=== PATIENT | female | born 2005 | race Caucasian/White ===

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

== ENCOUNTER 2025-03-31 18:12 | Day surgery (SDC) | payer MEDICAID ==
[2025-03-31 18:27] VITALS: BMI 36.3
[2025-03-31] MEDS ORDERED: hydrALAZINE 20 MG/ML VIAL SLOW IVP PRN (18:27)
== END 2025-03-31 19:40 | disposition home or self-care (01) ==
LOC: CSHLD/OP 18:12
PROVIDERS: ATTEND Obstetrics & Gynecology
DX: O36.8120 Decreased fetal movements, second trimester, not applicable or unspecified (principal); O23.592 Infection of other part of genital tract in pregnancy, second trimester; N89.8 Other specified noninflammatory disorders of vagina; B96.89 Other specified bacterial agents as the cause of diseases classified elsewhere; Z3A.27 27 weeks gestation of pregnancy; Z90.89 Acquired absence of other organs; Z79.899 Other long term (current) drug therapy
CPT/HCPCS: 76819; 87480; 87510; 87660; 99283

== ENCOUNTER 2025-04-16 21:37 | Emergency (ER) | payer MEDICAID | END 2025-04-16 22:32 | disposition home or self-care (01) | LOC: CSHERS 21:37 | DX: O99.613 Diseases of the digestive system complicating pregnancy, third trimester (principal); K08.89 Other specified disorders of teeth and supporting structures; Z3A.30 30 weeks gestation of pregnancy | CPT/HCPCS: 99282 ==

== ENCOUNTER 2025-06-04 07:27 | Day surgery (SDC) | payer MEDICAID, OTHER ==
[2025-06-04] MEDS ORDERED: hydrALAZINE 20 MG/ML VIAL SLOW IVP PRN (08:42)
[2025-06-04 09:22] VITALS: BMI 39.2
[2025-06-04 09:31] LABS: Glucose, Urine (Dipstick) Normal (Negative); Leukocyte 25 (Negative); Protein, Urine (Dipstick) 30 mg/dl (Neg-Trace); Specific Gravity, Urine 1.020 (1.005-1.030)
[2025-06-04 09:43] LABS: Bacteria/HPF 2+ HPF (None Seen); CAUTI Indications for Culture Pelvic or flank pain; RBC/HPF None Seen HPF (0-3)
[2025-06-04 09:44] LABS: Urine Culture Reflex No No
== END 2025-06-04 09:55 | disposition home health service (06) ==
LOC: CSHLD/OP 07:27
PROVIDERS: ATTEND Obstetrics & Gynecology
DX: O99.891 Other specified diseases and conditions complicating pregnancy (principal); M54.50 Low back pain, unspecified; O47.03 False labor before 37 completed weeks of gestation, third trimester; E86.0 Dehydration; Z3A.36 36 weeks gestation of pregnancy
CPT/HCPCS: 81001; 99283

== ENCOUNTER 2025-07-05 18:00 | Inpatient (IN) | payer OTHER ==
[2025-07-05] MEDS ORDERED: Ondansetron PF 4 MG/2 ML Vial IVP PRN (18:20)
[2025-07-05] MEDS ORDERED: Lidocaine 1% (PF) 30 ML VIAL SC PRN (18:20)
[2025-07-05] MEDS ORDERED: hydrALAZINE 20 MG/ML VIAL SLOW IVP PRN (18:20)
[2025-07-05] MEDS ORDERED: Acetaminophen 500 MG TAB PO PRN (18:21)
[2025-07-05] MEDS ORDERED: Tranexamic Acid 1,000 MG/10 ML VIAL IVP PRN (18:21)
[2025-07-05] MEDS ORDERED: Methylergonovine 0.2 MG/ML VIAL IM PRN (18:21)
[2025-07-05] MEDS ORDERED: Carboprost 250 MCG/ML AMP IM PRN (18:21)
[2025-07-05] MEDS ORDERED: Diphenoxylate HCl/Atropine Tablet PO PRN ×2 (18:21)
[2025-07-05] MEDS ORDERED: Ibuprofen 800 MG TAB PO PRN (18:21)
[2025-07-05] MEDS ORDERED: Oxytocin 30 units/NS 500 ML 500 ML IV SCH (18:30)
[2025-07-05 19:32] VITALS: BMI 40.3
[2025-07-05 19:43] LABS: Hematocrit 32.9 % (34.9-44.5); Hemoglobin 10.8 g/dL (12.0-15.5); Mean Corpuscular Hemoglobin 26.0 pg (27.0-33.0); Mean Corpuscular Volume 79.3 fL (81.6-98.3); Platelet Count 336 10x3/uL (150-450); Red Blood Cell (RBC) Count 4.15 10x6/uL (3.90-5.03); White Blood Cell (WBC) Count 12.66 10x3/uL (3.5-10.5)
[2025-07-05 21:37] LABS: HIV (1/2) Antibody/Antigen Non-Reactive (NonReactive); HIV 1/2 INDEX 0.11 S/CO (<1.00); Hep B Surf Ag - L&D Non-Reactive S/CO (NonReactive)
[2025-07-05 21:38] LABS: Syphilis Antibody Index 0.03 S/CO (<1.00 Non-Reactive)
[2025-07-05] MEDS: Oxytocin 30 units/NS 500 ML 500 ML IV SCH (21:41)
[2025-07-05] MEDS ORDERED: diphenhydrAMINE 50 MG/ML VIAL IVP PRN (23:16)
[2025-07-05] MEDS ORDERED: Communication Order-Pharmacy FS SCH (23:30)
[2025-07-05] MEDS: fentaNYL/Ropivacaine Epidural 100 ML ONE (23:35)
[2025-07-06] MEDS ORDERED: Famotidine/PF 20 mg/2ml Vial SLOW IVP PRN (07:27)
[2025-07-06] MEDS ORDERED: Bicitra 30 ML UDCUP PO PRN (07:27)
[2025-07-06] MEDS: fentaNYL 2 mcg/Ropivacaine 0.2% Epidural 100 ML CADD EPIDURAL SCH (07:43)
[2025-07-06] MEDS: Acetaminophen 325 MG TAB PO PRN (08:23)
[2025-07-06] MEDS: Azithromycin 500 MG in Sodium Chloride 0.9% 250 ML 250 ML IVPB SCH (08:29)
[2025-07-06] MEDS ORDERED: Meperidine HCl/PF 25 MG (1 mL) VIAL SLOW IVP PRN ×2 (13:55→18:22)
[2025-07-06] MEDS ORDERED: diphenhydrAMINE 50 MG/ML VIAL IVP PRN (13:55)
[2025-07-06] MEDS: Ondansetron PF 4 MG/2 ML Vial IVP PRN (13:56)
[2025-07-06] MEDS ORDERED: Communication Order-Pharmacy FS SCH ×2 (14:00→18:30)
[2025-07-06 15:01] LABS: Analyzer IN Cardio CS NICU; RapidComm Collect By LD RN
[2025-07-06 15:02] LABS: Analyzer IN Cardio CS NICU; RapidComm Collect By LD RN; pH (Cord, venous) 7.357 (7.250-7.350)
[2025-07-06] MEDS ORDERED: Methylergonovine 0.2 MG/ML VIAL IM PRN (17:19)
[2025-07-06] MEDS ORDERED: Bisacodyl 10 MG SUPP PR PRN (17:19)
[2025-07-06] MEDS ORDERED: Ondansetron PF 4 MG/2 ML Vial IVP PRN ×3 (17:19→18:22)
[2025-07-06] MEDS ORDERED: hydrALAZINE 20 MG/ML VIAL SLOW IVP PRN (17:19)
[2025-07-06] MEDS ORDERED: Oxytocin 30 units/NS 500 ML 500 ML IV SCH (17:19)
[2025-07-06] MEDS: Ketorolac Tromethamine 30 MG (1 mL) VIAL IVP PRN (17:37)
[2025-07-06] MEDS ORDERED: HYDROmorphone 0.5 MG/0.5 ML SYRINGE SLOW IVP PRN (18:22)
[2025-07-06] MEDS ORDERED: Ketorolac Tromethamine 30 MG (1 mL) VIAL IVP SCH ×2 (18:30→21:30)
[2025-07-06] MEDS: SUGAMMADEX SODIUM 200 MG/2 ML VIAL ONE ×2 (19:23)
[2025-07-06] MEDS: SUCCINYLCHOLINE/SOD CL,ISO/PF 200 MG/10 ML SYRINGE FS ONE (19:23)
[2025-07-06] MEDS: KETAMINE 100 MG/ML (5ML VIAL) ONE (19:24)
[2025-07-06] MEDS: PROPOFOL 20 ML ONE (19:24)
[2025-07-06] MEDS: Ondansetron PF 4 MG/2 ML Vial ONE (19:24)
[2025-07-06] MEDS: Oxytocin 10 UNITS/ML VIAL ONE (19:24)
[2025-07-06] MEDS: Ketorolac Tromethamine 30 MG (1 mL) VIAL ONE (19:24)
[2025-07-06] MEDS: diphenhydrAMINE 50 MG/ML VIAL IVP PRN (23:49)
[2025-07-07] MEDS: Ferrous Sulfate 325 MG TAB PO SCH (02:17)
[2025-07-07] MEDS: Ibuprofen 800 MG TAB PO SCH ×2 (02:28→21:16)
[2025-07-07 04:43] LABS: Hematocrit 26.3 % (34.9-44.5); Hemoglobin 8.3 g/dL (12.0-15.5); Mean Corpuscular Hemoglobin 25.9 pg (27.0-33.0); Mean Corpuscular Volume 81.9 fL (81.6-98.3); Platelet Count 239 10x3/uL (150-450); Red Blood Cell (RBC) Count 3.21 10x6/uL (3.90-5.03); White Blood Cell (WBC) Count 14.07 10x3/uL (3.5-10.5)
[2025-07-07] MEDS: Ketorolac Tromethamine 30 MG (1 mL) VIAL IVP PRN (05:16)
[2025-07-07] MEDS ORDERED: HYDROcodone/Acetaminophen 5/325 mg Tablet PO PRN (08:08)
[2025-07-07] MEDS: Acetaminophen 325 MG TAB PO PRN (08:22)
[2025-07-07 13:19] LABS: Group B Streptococcus by PCR Not Detected (NotDetected)
[2025-07-07] MEDS: Sodium Ferric Gluconate 250 MG in Sodium Chloride 0.9% 250 ML 250 ML IVPB SCH (13:38)
[2025-07-07] MEDS: Simethicone Chewable 80 MG TAB PO PRN (21:19)
[2025-07-08] MEDS: HYDROcodone/Acetaminophen 5/325 mg Tablet PO PRN ×2 (12:04→19:06)
[2025-07-10 08:05] VITALS: BP 110/60; TEMP 97.5
== END 2025-07-10 14:26 | disposition home or self-care (01) | DRG 786 ==
LOC: EEVIPCON 18:01 → CSHLD 18:01 → CSHPP 07-06 18:25
PROVIDERS: ADMIT Family Medicine; ATTEND Family Medicine
PROC: 10907ZC Drainage of Amniotic Fluid, Therapeutic from Products of Conception, Via Natural or Artificial Opening (ICD-10-PCS; principal; 2025-07-05)
PROC: 10H07YZ Insertion of Other Device into Products of Conception, Via Natural or Artificial Opening (ICD-10-PCS; principal; 2025-07-05)
PROC: 10D00Z1 Extraction of Products of Conception, Low, Open Approach (ICD-10-PCS; principal; 2025-07-05)
DX: O48.0 Post-term pregnancy (principal); U07.1 COVID-19; O98.52 Other viral diseases complicating childbirth; D62 Acute posthemorrhagic anemia; O77.0 Labor and delivery complicated by meconium in amniotic fluid; O99.214 Obesity complicating childbirth; E66.812 Obesity, class 2; Z3A.41 41 weeks gestation of pregnancy; Z37.0 Single live birth; O99.02 Anemia complicating childbirth
CPT/HCPCS: 36416; 51702; 82805; 85027; 86780; 86850; 86900; 86901; 87340; 87389; 87653; 90715; J0456; J1200; J1885; J2250; J2274; J2405; J2550; J2590; J2704; J2916; J3010; J7050; J7120